=== PATIENT | female | born 1990 | race Caucasian/White ===

== ENCOUNTER 2017-07-30 22:52 | Emergency (ER) | payer SELFPAY, OTHER ==
[2017-07-31] MEDS: LORazepam 1 MG TAB PO (00:08)
== END 2017-07-31 00:17 | disposition home or self-care (01) ==
LOC: M ED 07-31 00:17
DX: F41.9 Anxiety disorder, unspecified (principal); Z87.891 Personal history of nicotine dependence; Z88.0 Allergy status to penicillin; Z88.1 Allergy status to other antibiotic agents
CPT/HCPCS: 99282